=== PATIENT | female | born 1970 | race African-American/Black ===

== ENCOUNTER 2017-09-11 13:18 | Emergency (ER) | payer MEDICAID ==
[~2017-09-11] VITALS: Ht 160 cm; Wt 92.1 kg
[~2017-09-11 13:18] MED LIST: ALBUTEROL2.5 MG/3 M INH; BENADRYL ALLERG25 M1 PO; DIFLUCAN150 MG PO; DIPHENHYDRAMINE25 M1 ORAL; GABAPENTIN400 MG ORAL; HYDROCHLOROTH12.5 MG ORAL; HYDROCODON-ACE1 EAC1 PO; NORCO 10/3251 EA ORAL; NORCO 5-325 TA1 EACH ORAL; PERCOCET 5-3251 EACH ORAL; PREDNISONE20 MG ORAL; ROBAXIN-750750 MG PO; SOMA350 MG PO
[2017-09-11 13:46] VITALS: BP 127/88
--- NOTE | 2017-09-11 14:16 | Emergency Room Report ---
History of Present Illness General Chief Complaint: Lower Back Pain or Injury Source: Patient Present Illness HPI 47 yo female patient presents to ER complaining of low back pain x3days. Reports stepping into bath tub and slipping; states she landed on her low back. Denies pain radiating to legs. States pain is worse when laying down; reports pain with walking. Denies bowel or bladder incontinence. Denies LOC, hitting head, dizziness, syncope. Denies use of pain medication for symptoms today; reports using Naproxen for pain relief for chronic knee pain. Patient reports currently on muscle relaxant medication carisoprodol. States she called primary care provider who told her to report to ER for worsening of symptoms. States she called her primary care provider for medication following fall; states she has prescription for pain medication and muscle relaxant that will be filled tomorrow. States she has followup appointment with primary care this week. Denies fever, chest pain, SOB. Allergies: Coded Allergies: IBUPROFEN (Unverified Allergy, Intermediate, Shortness of Breath, 02/28/14) ITCHING & SOB TRAMADOL (Unverified Allergy, Intermediate, Itching, 02/28/14) Patient History Past Medical History: see triage record Last Menstrual Period: 07/31/17 Now: No - Pt has appoint in September with [facility] Reviewed Nursing Documentation: PMH: Agreed, PSxH: Agreed Nursing Documentation-PMH Hx Hypertension: Yes Hx Asthma: Yes History Of Psychiatric Problem: Yes - Anxiety; PTSD Hx Neurological Problems: Yes - PTSD Review of Systems All Other Systems: negative except mentioned in HPI Physical Exam Vital Signs Date Time Temp Pulse Resp B/P (MAP) Pulse Ox O2 Delivery O2 Flow Rate FiO2 09/11/17 13:36 98.2 103 16 131/89 100 Room Air 98.2 Sp02 EP Interpretation: reviewed, normal General Appearance: no apparent distress, alert, GCS 15, non-toxic Head: normocephalic, atraumatic Eyes: bilateral eye normal inspection, bilateral eye PERRL ENT: hearing grossly normal, normal pharynx, no angioedema, normal voice Neck: full range of motion, supple/symm/no masses Respiratory: chest non-tender, lungs clear, normal breath sounds, speaking full sentences Cardiovascular #1: regular rate, rhythm, no edema Gastrointestinal: normal bowel sounds, non tender, soft, non-distended, no guarding, no rebound Genitourinary: no CVA tenderness Musculoskeletal: back normal, digits/nails normal, gait/station normal, normal range of motion, non-tender, no calf tenderness, other - no bony tenderness of spine, negative step off sign, no ecchymosis, no erythema, no edema Neurologic: alert, oriented x3, responsive, motor strength/tone normal, sensory intact, speech normal Psychiatric: mood/affect normal Skin: normal color, no rash, warm/dry, palpation normal, well hydrated Medical Decision Making PA Attestation Dr. Lorenz is my supervising Physician whom patient management has been discussed with. Diagnostic Impression: Primary Impression: Low back pain ER Course Pt. presents to the ED c/o low back pain. Ddx considered but are not limited to sprain, strain, contusion. No LOC, head injury, or FAY, no need for evaluation with CT required at this time. Vital signs: are WNL, pt. is afebrile ORDERS: None required at this time, diagnosis is clinical. ER COURSE: CURES report shows patient currently receiving prescription for SOMA as of July 2016; patient states she has medication remaining. Patient reports history of allergy to ibuprofen, states she gets itchy after taking medication. Patient provided with Toradol for pain and Benadryl to prevent pruritic symptoms in ER. Patient provided with Methocarbamol in ER. Patient reports improvement of symptoms following medication. Patient handed the phone to me to speak with her physician's staff air tactical officer who had previously instructed her to report to the ER on Monday. Spoke on patient's phone to her physician's staff air tactical officer. Informed them that patient injury likely soft tissue. Patient able to ambulate independently, with active ROM and no spinal bony tenderness, no bruising or swelling. Patient does not require imaging at this time, should followup with physician's in office to determine need for further evaluation and referral for x-rays at that time. DISCHARGE: Patient reports she will fill prescription from primary care tomorrow. Informed patient will not provide her with opioid medication, informed her to take Naproxen as needed for pain symptoms; states she does not need Rx for Naproxen at this time. Informed patient to continue taking current medications as prescribed by primary care provider. Patient and staff air tactical officer report understanding and agreement to treatment plan. Patient scheduled appointment with primary care provider while on phone previously. At this time pt. is stable for d/c to home. Patient is resting comfortably, in no acute distress, nontoxic appearing, smiling and talking on the phone. Will provide printed patient care instructions, and any necessary prescriptions. Patient instructed to follow with primary care provider and to request further orthopedic follow-up as needed. Care plan and follow up instructions have been discussed with the patient prior to discharge. Patient instructed on RICE method: rest, ice, compression, elevation. Patient instructed to WBAT. Take medications as directed. Patient questions asked and answered. ER precautions given, patient instructed to return to ER immediately for any new or worsening of symptoms. Last Vital Signs Date Time Temp Pulse Resp B/P (MAP) Pulse Ox O2 Delivery O2 Flow Rate FiO2 09/11/17 13:36 98.2 103 16 131/89 100 Room Air 98.2 Disposition: HOME, SELF-CARE Condition: Stable Patient Instructions: Back Pain, Adult Additional Instructions: Followup with primary care provider in 2-3 days. Take medications as directed. Patient questions asked and answered. ER precautions given, patient instructed to return to ER immediately for any new or worsening of symptoms. Khurram Galicia Sep 11, 2017 14:16
[2017-09-11] MEDS ORDERED: Methocarbamol 500mg tab ORAL ONE (14:30)
[2017-09-11] MEDS ORDERED: Ketorolac 30mg Inj IM ONE (14:30)
[2017-09-11 14:45] VITALS: BP 131/89
== END 2017-09-11 15:53 | disposition home or self-care (01) ==
LOC: EMR 14:30
DX: M54.5 Low back pain (principal); I10 Essential (primary) hypertension; J45.909 Unspecified asthma, uncomplicated; F43.10 Post-traumatic stress disorder, unspecified; F41.9 Anxiety disorder, unspecified; Z88.6 Allergy status to analgesic agent
CPT/HCPCS: 96372; 99284; J1885